=== PATIENT | male | born 1970 | race Two or more races ===

== ENCOUNTER 2021-01-16 22:45 | Emergency (ER) | payer MEDICARE, OTHER ==
[~2021-01-16] VITALS: Ht 167.6 cm; Wt 113.4 kg
[2021-01-16] MEDS ORDERED: LEVETIRACETAM (500MG) 500 MG in IV NS 0.9% 100 ML IV ONE (23:00)
--- NOTE | 2021-01-16 23:03 | NUR ---
PATIENT PROVIDED WITH WARM BLANKETS FOR COMFORT.
[2021-01-16] MEDS ORDERED: LEVETIRACETAM (500MG) 500 MG/5 ML VIAL IV ONE (23:11)
[2021-01-16 23:17] LABS: BASOPHILS # (AUTO) 0.1 K/uL (0.0-0.2); BASOPHILS % (AUTO) 0.5 % (0.0-2.0); EOSINOPHILS % (AUTO) 1.1 % (0.0-6.0); HEMATOCRIT 43 % (39-51); HEMOGLOBIN 14.8 g/dL (13.5-17.5); LYMPHOCYTES # (AUTO) 1.4 K/uL (0.8-4.8); LYMPHOCYTES % (AUTO) 14.4 % (20.0-44.0); MEAN CORPUSCULAR HGB CONC 34 g/dl (31.0-36.0); MEAN CORPUSCULAR VOLUME 86 fL (80-96); MONOCYTES # (AUTO) 0.8 K/uL (0.1-1.30); MONOCYTES % (AUTO) 7.9 % (2.0-12.0); NEUTROPHILS # (AUTO) 7.5 K/uL (1.8-8.9); NEUTROPHILS % (AUTO) 76.1 % (43.0-81.0); PLATELET COUNT (AUTO) 291 K/uL (150-450); WHITE BLOOD COUNT (AUTO) 9.9 K/uL (4.3-11.0)
--- NOTE | 2021-01-16 23:46 | NUR ---
ADDENDUM: Intravenous End Time Documentation: Keppra 500 mg IVPB: start time: 6 pm ; end time: 15 am : IV site:LAC PIV # 18 Port # 1
[2021-01-16 23:51] LABS: CALCIUM, SERUM 8.3 mg/dL (8.5-10.1); CARBON DIOXIDE 29 mmol/L (21-32); CHLORIDE 90 mmol/L (98-107); CREATININE 0.9 mg/dL (0.6-1.3); GLUCOSE 134 mg/dL (74-106); SODIUM SERUM 127 mmol/L (136-145); UREA NITROGEN, BLOOD 8 mg/dL (7-18)
--- NOTE | 2021-01-16 23:59 | NUR ---
urine collected and sent to lab
[2021-01-17 00:07] LABS: ALANINE AMINOTRANSFERASE 65 U/L (12-78); ALBUMIN 3.4 g/dL (3.4-5.0); ALCOHOL, BLOOD < 3 mg/dL (0-0); ALKALINE PHOSPHATASE 131 U/L (46-116); ASPARTATE AMINOTRANSFERASE 27 U/L (15-37); BILIRUBIN,DIRECT 0.1 mg/dL (0.0-0.2); BILIRUBIN,TOTAL 0.3 mg/dL (0.2-1.0); TOTAL PROTEIN, SERUM 7.6 g/dL (6.4-8.2)
--- NOTE | 2021-01-17 00:50 | NUR ---
CALLED ROD FOR IMAGING READ
[2021-01-17 01:32] VITALS: BP 138/80
--- NOTE | 2021-01-17 01:32 | NUR ---
Patient discharged to home in stable condition. Written and verbal after care instructions given. Patient verbalizes understanding of instruction.
== END 2021-01-17 01:33 | disposition home or self-care (01) ==
LOC: ER 22:47
DX: G40.909 Epilepsy, unspecified, not intractable, without status epilepticus (principal); E11.9 Type 2 diabetes mellitus without complications; F84.0 Autistic disorder
CPT/HCPCS: 36415; 70450; 80048; 80076; 80185; 80307; 80320; 82962; 85025; 85730; 96365; 99284; J1953 ×2; J7030 ×2; G0480

== ENCOUNTER 2022-01-24 23:14 | Emergency (ER) | payer MEDICARE, OTHER ==
[~2022-01-24] VITALS: Ht 167.6 cm; Wt 111.1 kg
--- NOTE | 2022-01-25 00:10 | NUR ---
TO ER BED 14. BIBRA 878 C/O TRIP & GLF. LLE PAIN. -HEAD TRAUMA OR DEFORMITIES. PT IS AUTISTIC, AMBULATORY WITH STEADY GAIT. RR EVEN AND NON LABORED. CONNECTED TO MONITOR
[2022-01-25] MEDS ORDERED: IBUPROFEN 400 MG TABLET PO ONE (00:30)
--- NOTE | 2022-01-25 00:45 | NUR ---
[employer] C[employer] REPAIRER AT PT'S BEDSIDE
[2022-01-25] MEDS ORDERED: IBUPROFEN 400 MG TABLET ONE (00:47)
[2022-01-25] MEDS ORDERED: ACETAMINOPHEN 325 MG TABLET ONE (01:17)
[2022-01-25] MEDS ORDERED: ACETAMINOPHEN ES 500 MG TABLET PO ONE (01:30)
--- NOTE | 2022-01-25 03:22 | NUR ---
XAVIER WRAP APPLIED TO LEFT ANKLE
--- NOTE | 2022-01-25 03:29 | NUR ---
Patient discharged to home with caregiver in stable condition. Written and verbal after care instructions given. Patient verbalizes understanding of instruction.
[2022-01-25 03:30] VITALS: BP 121/81
== END 2022-01-25 03:30 | disposition home or self-care (01) ==
LOC: ER 23:18
DX: S82.62XA Displaced fracture of lateral malleolus of left fibula, initial encounter for closed fracture (principal); S80.211A Abrasion, right knee, initial encounter; E11.9 Type 2 diabetes mellitus without complications; W18.30XA Fall on same level, unspecified, initial encounter; Y93.89 Activity, other specified; Y92.89 Other specified places as the place of occurrence of the external cause; Y99.8 Other external cause status
CPT/HCPCS: 72170-TC; 73564-TC; 73610-TC

== ENCOUNTER 2022-05-28 13:52 | Emergency (ER) | payer MEDICARE, OTHER ==
[~2022-05-28] VITALS: Ht 157.5 cm; Wt 113.4 kg
[2022-05-28] MEDS ORDERED: IV NS 0.9% 1,000 ML BAG IV ONE (15:00)
[2022-05-28] MEDS ORDERED: ONDANSETRON HCL/PF 4 MG/2 ML VIAL IVP ONE (15:00)
[2022-05-28] MEDS ORDERED: ONDANSETRON HCL/PF 4 MG/2 ML VIAL ONE (15:16)
--- NOTE | 2022-05-28 15:30 | NUR ---
PT IN BED MOTHER AT BEDSIDE HAS AUTISUM IS NON VERBAL ABLE TO FOLLOW BASIC DIRECTIONS. C/O: DIZZINESS Hx TOOK ANIT SEIZURE MEDICATION 1 HOUR PRIOR TO SYMPTOMS.
--- NOTE | 2022-05-28 16:04 | NUR ---
URINE COLLECTED AND SENT TO LAB
[2022-05-28 16:06] LABS: BILIRUBIN,URINE NEGATIVE (NEGATIVE); COLOR,URINE YELLOW (YELLOW); LEUKOCYTE ESTERASE ,URINE NEGATIVE (NEGATIVE); NITRITE, URINE NEGATIVE (NEGATIVE); PROTEIN,URINE NEGATIVE (NEGATIVE); UGLUCOSE 1+ mg/dL (NEGATIVE); UROBILINOGEN,URINE 0.2 EU/dL (0.2)
[2022-05-28 16:35] LABS: BASOPHILS % (AUTO) 0.5 % (0.0-2.0); HEMATOCRIT 44 % (39-51); HEMOGLOBIN 14.4 g/dL (13.5-17.5); LYMPHOCYTES # (AUTO) 1.4 K/uL (0.8-4.8); LYMPHOCYTES % (AUTO) 21.2 % (20.0-44.0); MEAN CORPUSCULAR HGB CONC 33 g/dl (31.0-36.0); MEAN CORPUSCULAR VOLUME 84 fL (80-96); MONOCYTES # (AUTO) 0.8 K/uL (0.1-1.30); MONOCYTES % (AUTO) 12.3 % (2.0-12.0); NEUTROPHILS # (AUTO) 4.4 K/uL (1.8-8.9); PLATELET COUNT (AUTO) 287 K/uL (150-450); RED BLOOD CELL COUNT(AUTO) 5.18 MIL/uL (4.5-6.0); WHITE BLOOD COUNT (AUTO) 6.8 K/uL (4.3-11.0)
[2022-05-28 16:51] LABS: ALANINE AMINOTRANSFERASE 31 U/L (12-78); ALBUMIN 3.4 g/dL (3.4-5.0); ASPARTATE AMINOTRANSFERASE 18 U/L (15-37); BILIRUBIN,DIRECT 0.1 mg/dL (0.0-0.2); LIPASE 67 U/L (73-393)
[2022-05-28 17:07] LABS: BACTERIA,URINE None seen /HPF (None Seen); RBC,URINE 0-2 /HPF (0-2); WBC,URINE 0-2 /HPF (0-3)
[2022-05-28 17:08] LABS: MUCUS,URINE Many /LPF (None Seen)
[2022-05-28 17:17] LABS: ALKALINE PHOSPHATASE 73 U/L (46-116); BILIRUBIN,TOTAL 0.2 mg/dL (0.2-1.0); TOTAL PROTEIN, SERUM 6.1 g/dL (6.4-8.2)
[2022-05-28] MEDS ORDERED: AZIT250T13 PO (18:56)
--- NOTE | 2022-05-28 19:04 | NUR ---
PT AMBULATED AROUND THE CARREON STEADY GAIT NOTED.
[2022-05-28 19:14] VITALS: BP 132/86
== END 2022-05-28 19:15 | disposition home or self-care (01) ==
LOC: ER 13:57
DX: R10.84 Generalized abdominal pain (principal); R53.1 Weakness; R91.8 Other nonspecific abnormal finding of lung field; I10 Essential (primary) hypertension; E11.9 Type 2 diabetes mellitus without complications
CPT/HCPCS: 99285; 96374; 71045; 96361; 93005; 85025; 83605; 83690; 80076; 81001; 36415; 84484 ×2; 83880; 82962; J2405; J7030